=== PATIENT | female | born 1975 | race African-American/Black ===

== ENCOUNTER 2025-06-29 08:58 | Emergency (ER) | payer OTHER ==
[~2025-06-29] VITALS: Ht 175.3 cm; Wt 92.0 kg
[2025-06-29 09:03] VITALS: O2SAT 99
[2025-06-29] MEDS: ONDANSETRON 4MG ODT PO ONE (09:37)
[2025-06-29] MEDS: ACETAMINOPHEN WITH CODEINE 300/30MG TABLET PO ONE (09:37)
[2025-06-29] MEDS ORDERED: IBUP-2029 MT (10:18)
[2025-06-29 11:04] VITALS: BP 126/84; PULSE 66; RESP 14; TEMP 36.7; O2SAT 99
== END 2025-06-29 11:05 | disposition home or self-care (01) ==
LOC: ER 08:58
DX: S92.401A Displaced unspecified fracture of right great toe, initial encounter for closed fracture (principal); M79.7 Fibromyalgia; Z98.890 Other specified postprocedural states; Z88.5 Allergy status to narcotic agent; Z88.0 Allergy status to penicillin; X58.XXXA Exposure to other specified factors, initial encounter; Y93.89 Activity, other specified; Y92.89 Other specified places as the place of occurrence of the external cause; Y99.8 Other external cause status
CPT/HCPCS: 99283; 73630; Q0162